=== PATIENT | female | born 1940 | race Caucasian/White ===

== ENCOUNTER → 2018-10-02 | Outpatient (CLI) | payer MEDICARE ==
[~2018-10-02] MED LIST: [UNRECOGNIZED DRUG - REMARK] PO
== END | disposition home or self-care (01) ==
LOC: CFH 13:54
PROVIDERS: ATTEND Physician Assistant
DX: M48.54XA Collapsed vertebra, not elsewhere classified, thoracic region, initial encounter for fracture (principal); M47.895 Other spondylosis, thoracolumbar region; M47.897 Other spondylosis, lumbosacral region; M48.04 Spinal stenosis, thoracic region; M48.07 Spinal stenosis, lumbosacral region; M51.27 Other intervertebral disc displacement, lumbosacral region; M54.41 Lumbago with sciatica, right side
CPT/HCPCS: 72148

== ENCOUNTER 2019-01-24 12:28 | Inpatient (IN) | payer MEDICARE ==
[~2019-01-24] VITALS: Ht 167.6 cm; Wt 57.6 kg
[~2019-01-24 12:28] MED LIST changes: +FOLI-17 PO; +MULT-658 PO; +ONDA4TAB13 PO; +PANT40TA5 PO; +THIA100T67 PO; +TRAM50TA2 PO
[2019-01-24] MEDS ORDERED: ONDANSETRON 2MG/ML, 2ML IVPush ONE (13:30)
[2019-01-24] MEDS ORDERED: SODIUM CHLORIDE FLUSH 10ML SYR IVF ONE (13:30)
[2019-01-24] MEDS ORDERED: FAMOTIDINE 20 MG/2 ML IVPush ONE (13:30)
[2019-01-24 13:39] LABS: MEAN CORPUSCULAR HEMOGLOBIN 33.2 pg (27.0-34.8); MEAN CORPUSCULAR HGB CONC 33.3 g/dL (32.4-35.8); MEAN CORPUSCULAR VOLUME 99.7 fL (80-100); PLATELET COUNT 527 x10^3/uL (130-400); RED BLOOD COUNT 2.94 x10^6/uL (3.82-5.3); RED CELL DISTRIBUTION WIDTH 14.5 % (9.6-15.2)
--- NOTE | 2019-01-24 13:45 | NUR ---
BC X 2 DRAWN BY NATY.
[2019-01-24 13:49] LABS: ALANINE AMINOTRANSFERASE 20 U/L (12-78); ALBUMIN 3.3 g/dL (3.4-5.0); ANION GAP 6 mmol/L (5-15); CALCIUM 8.6 mg/dL (8.5-10.1); CHLORIDE 102 mmol/L (98-107); CREATININE 0.69 mg/dL (0.55-1.02)
[2019-01-24 13:51] LABS: ALKALINE PHOSPHATASE 139 U/L (45-117); MD YES; TOTAL PROTEIN 7.2 g/dL (6.4-8.2)
[2019-01-24] MEDS ORDERED: ONDANSETRON 2MG/ML, 2ML ONE (13:51)
[2019-01-24] MEDS ORDERED: PIPERACILLIN/TAZO/PMX 3.375GM 50 ML ONE (13:51)
[2019-01-24] MEDS ORDERED: FAMOTIDINE 20 MG/2 ML ONE (13:52)
[2019-01-24 13:58] LABS: BANDS%(MANUAL) 1 % (0-7); LYMPHS% (MANUAL) 2 % (22-44); MONOS% (MANUAL) 4 % (2-9); SEG#(MANUAL) 37.29 x10^3/uL (1.8-6.8); SEGS% (MANUAL) 93 % (42-75)
[2019-01-24 14:00] LABS: POLYCHROMASIA 1+
[2019-01-24] MEDS ORDERED: PIPERACILLIN/TAZO/PMX 3.375GM 50 ML IV ONE (14:00)
[2019-01-24 14:02] LABS: <PLATELET ESTIMATE> INCREASED; LARGE PLATELETS 1+
[2019-01-24 14:03] LABS: TOXIC GRAN 1+
--- NOTE | 2019-01-24 14:14 | NUR ---
ED MD AT BEDSIDE TO DISCUSS POC. PT VERBALIZED UNDERSTANDING FOR PLAN TO ADMIT. SEPSIS DISCUSSED, PER ED MD, FLUID BOLUS NOT INDICATED AT THIS TIME.
--- NOTE | 2019-01-24 14:15 | NUR ---
REPORT TO GURMEET SILVA
[2019-01-24 14:22] LABS: MICROSCOPIC NOT IND
[2019-01-24 14:23] LABS: CULTURE INDICATED? NO
[2019-01-24] MEDS ORDERED: SODIUM CHLORIDE 0.9% 1,000ML IVBOLUS ONE (14:30)
--- NOTE | 2019-01-24 14:30 | NUR ---
ASSUMED PT CARE PT RESTING WAITING ADMIT ZENON HATFIELD PROVIDED IV INFUSING WELL
[2019-01-24 15:38] LABS: RAPID INFLUENZA A Negative (Negative); RAPID INFLUENZA B Negative (Negative)
[2019-01-24] MEDS ORDERED: VANCOMYCIN PER PHARMACY MC PRN (17:30)
[2019-01-24 17:46] LABS: HCT (SEDRATE) 29.6 % (34.6-47.8)
[2019-01-24] MEDS ORDERED: VANCOMYCIN 1,000 MG in SODIUM CHLORIDE 0.9% 100 ML IV SCH (18:00)
[2019-01-24] MEDS ORDERED: PHARMACOKINETIC MONITORING MC PRN (18:00)
[2019-01-24 18:03] LABS: TROPONIN I < 0.015 ng/mL (0.000-0.045)
[2019-01-24] MEDS: HEPARIN 5,000 UNITS/ML, 1ML SQ SCH (18:26)
[2019-01-24] MEDS: SODIUM CHLORIDE 0.9% 2,000 ML IV SCH (18:27)
[2019-01-24] MEDS: CEFEPIME 2 GM in DEXTROSE 5% 100 ML IV SCH (18:27)
[2019-01-24] MEDS: LEVOFLOXACIN/PMX 750MG/150ML 150 ML IV SCH (19:17)
[2019-01-24 19:25] LABS: CLOSTRIDIUM DIFFICILE ANTIGEN POSITIVE; CLOSTRIDIUM DIFFICILE TOXIN POSITIVE (Negative)
[2019-01-24 20:40] VITALS: BP 111/56
[2019-01-24] MEDS ORDERED: VANCOMYCIN PMX 1GM/200ML 200 ML IV SCH (21:00)
[2019-01-24] MEDS ORDERED: OMNIPAQUE 350 MG/ML, 100ML BOTTLE ONE (22:52)
[2019-01-24] MEDS: VANCOMYCIN 50 MG/ML ORAL SUSP PO SCH (23:06)
[2019-01-24 23:44] LABS: TROPONIN I < 0.015 ng/mL (0.000-0.045)
[2019-01-25 02:00] VITALS: BP 106/62
[2019-01-25] MEDS: CEFEPIME 2 GM in DEXTROSE 5% 100 ML IV SCH ×3 (03:17→23:02)
[2019-01-25] MEDS: HEPARIN 5,000 UNITS/ML, 1ML SQ SCH ×3 (03:18→20:37)
[2019-01-25] MEDS ORDERED: SODIUM CHLORIDE INHALATION 7%, 4 ML NPPB ONE (03:30)
[2019-01-25] MEDS: VANCOMYCIN 50 MG/ML ORAL SUSP PO SCH ×2 (05:47→11:51)
[2019-01-25] MEDS: SODIUM CHLORIDE 0.9% 2,000 ML IV SCH ×2 (06:34→23:03)
[2019-01-25] MEDS: PANTOPROZOLE 40MG TABLET PO SCH (06:34)
[2019-01-25 07:56] VITALS: BP 92/52
[2019-01-25 08:06] LABS: ALBUMIN 2.8 g/dL (3.4-5.0); ANION GAP 6 mmol/L (5-15); CALCIUM 7.5 mg/dL (8.5-10.1); CHLORIDE 103 mmol/L (98-107)
[2019-01-25 08:09] LABS: ALANINE AMINOTRANSFERASE 18 U/L (12-78); ALKALINE PHOSPHATASE 107 U/L (45-117); BILIRUBIN,TOTAL 0.7 mg/dL (0.2-1.0); CREATININE 0.73 mg/dL (0.55-1.02); TOTAL PROTEIN 5.9 g/dL (6.4-8.2)
[2019-01-25 08:26] LABS: HEMOGRAM NOTE RECHECKED; MEAN CORPUSCULAR HEMOGLOBIN 33.2 pg (27.0-34.8); MEAN CORPUSCULAR HGB CONC 33.3 g/dL (32.4-35.8); MEAN CORPUSCULAR VOLUME 99.6 fL (80-100); MEAN PLATELET VOLUME 8.8 fL (7.4-10.4); PLATELET COUNT 398 x10^3/uL (130-400); RED BLOOD COUNT 2.54 x10^6/uL (3.82-5.3); RED CELL DISTRIBUTION WIDTH 14.6 % (9.6-15.2)
[2019-01-25] MEDS: MULTIVITAMIN 1 TABLET PO SCH (08:28)
[2019-01-25] MEDS: SENNA/DOCUSATE TABLET PO SCH (08:28)
[2019-01-25] MEDS: FOLIC ACID 1 MG TABLET PO SCH (08:28)
[2019-01-25 09:16] LABS: BASOPHILS # (AUTO) 0.02 x10^3/uL (0-0.1); BASOPHILS % (AUTO) 0 % (0-1); EOSINOPHILS # (AUTO) 0.01 x10^3/uL (0-0.4); EOSINOPHILS % (AUTO) 0 % (1-7); LYMPHOCYTES % (AUTO) 7 % (22-44); MD SCAN; MONOCYTES # (AUTO) 1.85 x10^3/uL (0.2-0.8); MONOCYTES % (AUTO) 9 % (2-9); NEUTROPHILS # (AUTO) 16.44 x10^3/uL (1.8-6.8); NEUTROPHILS % (AUTO) 84 % (42-75)
[2019-01-25 13:38] VITALS: BP 106/51
[2019-01-25] MEDS: LEVOFLOXACIN/PMX 750MG/150ML 150 ML IV SCH (19:33)
[2019-01-25 20:00] VITALS: BP 116/64
[2019-01-26 02:00] VITALS: BP 144/73
[2019-01-26] MEDS: PANTOPROZOLE 40MG TABLET PO SCH (05:17)
[2019-01-26] MEDS: HEPARIN 5,000 UNITS/ML, 1ML SQ SCH ×3 (05:18→20:08)
[2019-01-26 07:18] LABS: MEAN CORPUSCULAR HEMOGLOBIN 32.8 pg (27.0-34.8); MEAN CORPUSCULAR HGB CONC 33.2 g/dL (32.4-35.8); MEAN CORPUSCULAR VOLUME 98.8 fL (80-100); MEAN PLATELET VOLUME 8.9 fL (7.4-10.4); PLATELET COUNT 376 x10^3/uL (130-400); RED BLOOD COUNT 2.48 x10^6/uL (3.82-5.3); RED CELL DISTRIBUTION WIDTH 14.3 % (9.6-15.2)
[2019-01-26 07:28] LABS: ALANINE AMINOTRANSFERASE 15 U/L (12-78); ALBUMIN 2.4 g/dL (3.4-5.0); ANION GAP 7 mmol/L (5-15); CALCIUM 7.7 mg/dL (8.5-10.1); CHLORIDE 108 mmol/L (98-107); CREATININE 0.56 mg/dL (0.55-1.02)
[2019-01-26 07:30] LABS: ALKALINE PHOSPHATASE 107 U/L (45-117); BILIRUBIN,TOTAL 0.5 mg/dL (0.2-1.0); TOTAL PROTEIN 5.7 g/dL (6.4-8.2)
[2019-01-26] MEDS: CEFEPIME 2 GM in DEXTROSE 5% 100 ML IV SCH ×2 (08:15→15:23)
[2019-01-26] MEDS: SENNA/DOCUSATE TABLET PO SCH (08:16)
[2019-01-26] MEDS: MULTIVITAMIN 1 TABLET PO SCH (08:16)
[2019-01-26] MEDS: FOLIC ACID 1 MG TABLET PO SCH (08:16)
[2019-01-26 08:17] VITALS: BP 142/61
[2019-01-26 08:23] LABS: BASOPHILS # (AUTO) 0.05 x10^3/uL (0-0.1); BASOPHILS % (AUTO) 1 % (0-1); EOSINOPHILS # (AUTO) 0.35 x10^3/uL (0-0.4); EOSINOPHILS % (AUTO) 4 % (1-7); LYMPHOCYTES # (AUTO) 1.43 x10^3/uL (1-3.4); LYMPHOCYTES % (AUTO) 15 % (22-44); MD SCAN; MONOCYTES # (AUTO) 1.51 x10^3/uL (0.2-0.8); MONOCYTES % (AUTO) 16 % (2-9); NEUTROPHILS # (AUTO) 6.39 x10^3/uL (1.8-6.8); NEUTROPHILS % (AUTO) 66 % (42-75)
[2019-01-26 14:03] VITALS: BP 126/88
[2019-01-26] MEDS: SODIUM CHLORIDE 0.9% 1,000 ML IV SCH (15:23)
[2019-01-26] MEDS ORDERED: POTASSIUM CHLORIDE 20 MEQ TAB.ER.PRT PO ONE (19:30)
[2019-01-26 20:00] VITALS: BP 142/63
[2019-01-26] MEDS: LEVOFLOXACIN/PMX 750MG/150ML 150 ML IV SCH (20:07)
[2019-01-27] MEDS: SODIUM CHLORIDE 0.9% 1,000 ML IV SCH ×3 (01:36→19:47)
[2019-01-27 02:00] VITALS: BP 162/77
[2019-01-27] MEDS: HEPARIN 5,000 UNITS/ML, 1ML SQ SCH ×3 (03:55→19:46)
[2019-01-27] MEDS: PANTOPROZOLE 40MG TABLET PO SCH (05:10)
[2019-01-27 08:14] LABS: BASOPHILS # (AUTO) 0.06 x10^3/uL (0-0.1); BASOPHILS % (AUTO) 1 % (0-1); EOSINOPHILS # (AUTO) 0.14 x10^3/uL (0-0.4); EOSINOPHILS % (AUTO) 2 % (1-7); LYMPHOCYTES # (AUTO) 1.55 x10^3/uL (1-3.4); LYMPHOCYTES % (AUTO) 19 % (22-44); MD NO; MEAN CORPUSCULAR HEMOGLOBIN 32.4 pg (27.0-34.8); MEAN CORPUSCULAR HGB CONC 32.8 g/dL (32.4-35.8); MEAN CORPUSCULAR VOLUME 98.8 fL (80-100); MEAN PLATELET VOLUME 9.2 fL (7.4-10.4); MONOCYTES # (AUTO) 1.04 x10^3/uL (0.2-0.8); MONOCYTES % (AUTO) 13 % (2-9); NEUTROPHILS # (AUTO) 5.31 x10^3/uL (1.8-6.8); NEUTROPHILS % (AUTO) 66 % (42-75); PLATELET COUNT 383 x10^3/uL (130-400); RED BLOOD COUNT 2.66 x10^6/uL (3.82-5.3); RED CELL DISTRIBUTION WIDTH 14.7 % (9.6-15.2)
[2019-01-27 08:29] LABS: ALANINE AMINOTRANSFERASE 16 U/L (12-78); ALBUMIN 2.7 g/dL (3.4-5.0); ANION GAP 7 mmol/L (5-15); CALCIUM 8.2 mg/dL (8.5-10.1); CHLORIDE 109 mmol/L (98-107); CREATININE 0.57 mg/dL (0.55-1.02)
[2019-01-27 08:31] LABS: ALKALINE PHOSPHATASE 118 U/L (45-117); BILIRUBIN,TOTAL 0.6 mg/dL (0.2-1.0); TOTAL PROTEIN 6.2 g/dL (6.4-8.2)
[2019-01-27 08:40] VITALS: BP 152/79
[2019-01-27] MEDS: FOLIC ACID 1 MG TABLET PO SCH (09:00)
[2019-01-27] MEDS: SENNA/DOCUSATE TABLET PO SCH (09:00)
[2019-01-27] MEDS: MULTIVITAMIN 1 TABLET PO SCH (09:34)
[2019-01-27] MEDS ORDERED: POTASSIUM CHLORIDE 20 MEQ TAB.ER.PRT PO ONE (13:30)
[2019-01-27] MEDS: LIDODERM 5% PATCH TD SCH (13:59)
[2019-01-27 14:12] VITALS: BP 147/73
[2019-01-27] MEDS: DOXYCYCLINE 100MG TABLET PO SCH (19:46)
[2019-01-27 20:00] VITALS: BP 153/69
[2019-01-27] MEDS: ONDANSETRON ODT 4 MG PO PRN (20:59)
[2019-01-28 02:00] VITALS: BP 134/70
[2019-01-28] MEDS: HEPARIN 5,000 UNITS/ML, 1ML SQ SCH ×3 (04:10→19:48)
[2019-01-28] MEDS: SODIUM CHLORIDE 0.9% 1,000 ML IV SCH ×3 (04:14→13:07)
[2019-01-28] MEDS: PANTOPROZOLE 40MG TABLET PO SCH (05:19)
[2019-01-28 07:05] VITALS: BP 132/68
[2019-01-28] MEDS: SENNA/DOCUSATE TABLET PO SCH (08:14)
[2019-01-28] MEDS: DOXYCYCLINE 100MG TABLET PO SCH ×2 (08:14→19:48)
[2019-01-28] MEDS: MULTIVITAMIN 1 TABLET PO SCH (08:14)
[2019-01-28] MEDS: VANCOMYCIN 50 MG/ML ORAL SUSP PO SCH ×3 (08:14→19:47)
[2019-01-28] MEDS: FOLIC ACID 1 MG TABLET PO SCH (08:14)
[2019-01-28] MEDS: LIDODERM 5% PATCH TD SCH (13:24)
[2019-01-28 13:46] VITALS: BP 129/73
[2019-01-28 19:52] VITALS: BP 148/92
[2019-01-28 20:44] VITALS: BP 156/76
[2019-01-28] MEDS: ONDANSETRON ODT 4 MG PO PRN (20:44)
[2019-01-29] MEDS: VANCOMYCIN 50 MG/ML ORAL SUSP PO SCH ×4 (01:04→19:48)
[2019-01-29 03:07] VITALS: BP 155/74
[2019-01-29] MEDS: HEPARIN 5,000 UNITS/ML, 1ML SQ SCH ×3 (05:12→20:03)
[2019-01-29] MEDS: PANTOPROZOLE 40MG TABLET PO SCH (05:13)
[2019-01-29] MEDS: SODIUM CHLORIDE 0.9% 1,000 ML IV SCH ×3 (05:13→21:51)
[2019-01-29 07:25] VITALS: BP 168/82
[2019-01-29] MEDS: MULTIVITAMIN 1 TABLET PO SCH (08:35)
[2019-01-29] MEDS: DOXYCYCLINE 100MG TABLET PO SCH ×2 (08:36→20:03)
[2019-01-29] MEDS: FOLIC ACID 1 MG TABLET PO SCH (08:36)
[2019-01-29] MEDS: SENNA/DOCUSATE TABLET PO SCH (08:36)
[2019-01-29 10:12] LABS: BASOPHILS # (AUTO) 0.06 x10^3/uL (0-0.1); BASOPHILS % (AUTO) 1 % (0-1); EOSINOPHILS # (AUTO) 0.12 x10^3/uL (0-0.4); EOSINOPHILS % (AUTO) 1 % (1-7); LYMPHOCYTES # (AUTO) 2.18 x10^3/uL (1-3.4); LYMPHOCYTES % (AUTO) 26 % (22-44); MD NO; MEAN CORPUSCULAR HEMOGLOBIN 31.9 pg (27.0-34.8); MEAN CORPUSCULAR HGB CONC 32.7 g/dL (32.4-35.8); MEAN CORPUSCULAR VOLUME 97.7 fL (80-100); MEAN PLATELET VOLUME 9.5 fL (7.4-10.4); MONOCYTES # (AUTO) 0.99 x10^3/uL (0.2-0.8); MONOCYTES % (AUTO) 12 % (2-9); NEUTROPHILS # (AUTO) 5.01 x10^3/uL (1.8-6.8); NEUTROPHILS % (AUTO) 60 % (42-75); PLATELET COUNT 388 x10^3/uL (130-400); RED BLOOD COUNT 2.74 x10^6/uL (3.82-5.3); RED CELL DISTRIBUTION WIDTH 15.1 % (9.6-15.2)
[2019-01-29 10:15] LABS: ALBUMIN 2.9 g/dL (3.4-5.0); ANION GAP 7 mmol/L (5-15); CALCIUM 8.3 mg/dL (8.5-10.1); CHLORIDE 108 mmol/L (98-107); CREATININE 0.54 mg/dL (0.55-1.02)
[2019-01-29] MEDS: LIDODERM 5% PATCH TD SCH (14:37)
[2019-01-29 14:40] VITALS: BP 153/80
[2019-01-29 18:49] VITALS: BP 143/71
[2019-01-29] MEDS: ONDANSETRON ODT 4 MG PO PRN (20:44)
[2019-01-30] MEDS: ONDANSETRON ODT 4 MG PO PRN (01:30)
[2019-01-30] MEDS: VANCOMYCIN 50 MG/ML ORAL SUSP PO SCH ×2 (01:32→08:10)
[2019-01-30 01:33] VITALS: BP 146/75
[2019-01-30] MEDS: PANTOPROZOLE 40MG TABLET PO SCH (05:18)
[2019-01-30] MEDS: HEPARIN 5,000 UNITS/ML, 1ML SQ SCH (05:18)
[2019-01-30] MEDS: SODIUM CHLORIDE 0.9% 1,000 ML IV SCH (05:40)
[2019-01-30 06:55] VITALS: BP 164/83
[2019-01-30] MEDS: MULTIVITAMIN 1 TABLET PO SCH (08:10)
[2019-01-30] MEDS: DOXYCYCLINE 100MG TABLET PO SCH (08:11)
[2019-01-30] MEDS: SENNA/DOCUSATE TABLET PO SCH (08:11)
[2019-01-30] MEDS: FOLIC ACID 1 MG TABLET PO SCH (08:11)
[2019-01-30] MEDS ORDERED: LIDO700A20 TD (09:07)
[2019-01-30] MEDS ORDERED: VANC1VIA3 PO (09:07)
[2019-01-30] MEDS ORDERED: SENN-177 PO (09:07)
[2019-01-30] MEDS ORDERED: DOXY100T PO (09:07)
[2019-01-30 09:42] LABS: BASOPHILS # (AUTO) 0.05 x10^3/uL (0-0.1); BASOPHILS % (AUTO) 1 % (0-1); EOSINOPHILS # (AUTO) 0.12 x10^3/uL (0-0.4); EOSINOPHILS % (AUTO) 1 % (1-7); LYMPHOCYTES # (AUTO) 1.66 x10^3/uL (1-3.4); LYMPHOCYTES % (AUTO) 20 % (22-44); MD NO; MEAN CORPUSCULAR HEMOGLOBIN 31.7 pg (27.0-34.8); MEAN CORPUSCULAR HGB CONC 32.5 g/dL (32.4-35.8); MEAN CORPUSCULAR VOLUME 97.6 fL (80-100); MEAN PLATELET VOLUME 9.1 fL (7.4-10.4); MONOCYTES # (AUTO) 0.98 x10^3/uL (0.2-0.8); MONOCYTES % (AUTO) 12 % (2-9); NEUTROPHILS % (AUTO) 67 % (42-75); PLATELET COUNT 377 x10^3/uL (130-400); RED BLOOD COUNT 2.68 x10^6/uL (3.82-5.3); RED CELL DISTRIBUTION WIDTH 15.3 % (9.6-15.2)
[2019-01-30 09:50] LABS: ANION GAP 5 mmol/L (5-15); CALCIUM 8.3 mg/dL (8.5-10.1); CHLORIDE 109 mmol/L (98-107); CREATININE 0.54 mg/dL (0.55-1.02)
[2019-01-30] MEDS: LIDODERM 5% PATCH TD SCH (09:50)
== END 2019-01-30 11:30 | DRG 871 ==
LOC: ED 14:33 → EDIP 15:02 → 4NOR 15:52 → 4WST 20:03
PROVIDERS: ADMIT Internal Medicine; ATTEND Internal Medicine
DX: A41.9 Sepsis, unspecified organism (principal); J18.0 Bronchopneumonia, unspecified organism; A04.72 Enterocolitis due to Clostridium difficile, not specified as recurrent; J91.8 Pleural effusion in other conditions classified elsewhere; M48.061 Spinal stenosis, lumbar region without neurogenic claudication; D72.823 Leukemoid reaction; D64.9 Anemia, unspecified; I45.81 Long QT syndrome; M48.04 Spinal stenosis, thoracic region; F17.200 Nicotine dependence, unspecified, uncomplicated
CPT/HCPCS: 36415; 71045; 74178; 80053; 80069; 81003; 83605; 83735; 84100; 84145; 84443; 84484; 85025; 85651; 87040; 87070; 87081; 87205; 87324; 87400; 93005; 96365; 96375; G0378; J1644; J1956; J2405; J2543; J3370; Q0162; Q9967; J3490; J7030

== ENCOUNTER 2020-07-13 10:25 | Emergency (ER) | payer MEDICARE ==
[~2020-07-13] VITALS: Ht 167.6 cm; Wt 47.9 kg
[~2020-07-13 10:25] MED LIST changes: +DOXY100T PO; +LIDO700A20 TD; -PANT40TA5 PO; +PANT40TA6 PO; +SENN-177 PO; +VANC1VIA3 PO
--- NOTE | 2020-07-13 10:38 | NUR ---
medication tech note: EKG taken in triage.
[2020-07-13] MEDS ORDERED: HYDROcodone/APAP 5/325 TABLET ONE (10:57)
[2020-07-13] MEDS ORDERED: HYDROcodone/APAP 5/325 TABLET PO ONE (11:00)
--- NOTE | 2020-07-13 11:09 | NUR ---
PT CAME IN CO OF PAIN FROM A GLF SHE TOOK 2 DAYS AGO. PT STATES SHE WAS SITTING DOWN AND "I GOT UP TOO FAST AND I FELT DIZZY AND FELL INTO THE DOOR". PT DENIES LOC OR TAKING BLOOD THINNERS. PT HAS EXTENSIVE BRUISING ON LEFT SIDE OF CHEST AND LEFT ARM. PT HAS FULL MOTION OF LEFT ARM BUT IT IS PAINFUL. PT IS RESTING IN GURNEY. BLANKET PROVIDED. MEDICATED PER JAN. EKG COMPLETE. CONNECTED TO MONITORING EQUIPMENT
[2020-07-13 11:34] LABS: ALBUMIN 3.7 g/dL (3.4-5.0); ANION GAP 10 mmol/L (5-15); CALCIUM 9.2 mg/dL (8.5-10.1); CHLORIDE 101 mmol/L (98-107)
[2020-07-13 11:36] LABS: INTERNATIONAL NORMALIZED RATIO 0.96 (0.93-1.1); PROTHROMBIN TIME 9.9 Seconds (9.6-11.5)
[2020-07-13 11:39] LABS: CREATINE KINASE, TOTAL 95 U/L (26-192); CREATININE 0.77 mg/dL (0.55-1.02); TROPONIN I < 0.015 ng/mL (0.000-0.045)
[2020-07-13 11:41] LABS: BASOPHILS # (AUTO) 0.01 x10^3/uL (0-0.1); BASOPHILS % (AUTO) 0 % (0-1); EOSINOPHILS # (AUTO) 0.02 x10^3/uL (0-0.4); EOSINOPHILS % (AUTO) 0 % (1-7); LYMPHOCYTES # (AUTO) 1.29 x10^3/uL (1-3.4); LYMPHOCYTES % (AUTO) 15 % (22-44); MD SCAN; MEAN CORPUSCULAR HEMOGLOBIN 34.3 pg (27.0-34.8); MEAN CORPUSCULAR HGB CONC 32.9 g/dL (32.4-35.8); MEAN CORPUSCULAR VOLUME 104.1 fL (80-100); MEAN PLATELET VOLUME 9.8 fL (7.4-10.4); MONOCYTES % (AUTO) 14 % (2-9); NEUTROPHILS # (AUTO) 6.06 x10^3/uL (1.8-6.8); NEUTROPHILS % (AUTO) 71 % (42-75); PLATELET COUNT 198 x10^3/uL (130-400); RED BLOOD COUNT 3.57 x10^6/uL (3.82-5.3); RED CELL DISTRIBUTION WIDTH 13.8 % (9.6-15.2)
[2020-07-13 12:15] VITALS: BP 117/49
--- NOTE | 2020-07-13 12:16 | NUR ---
PT RESTING IN [facility]. UP FOR RECHECK
--- NOTE | 2020-07-13 12:58 | NUR ---
REPORT FROM NADIR LEVI.
== END 2020-07-13 13:11 | disposition home or self-care (01) ==
LOC: ED 12:02
DX: S42.032A Displaced fracture of lateral end of left clavicle, initial encounter for closed fracture (principal); S00.83XA Contusion of other part of head, initial encounter; S20.212A Contusion of left front wall of thorax, initial encounter; S40.022A Contusion of left upper arm, initial encounter; R51 Headache; I49.3 Ventricular premature depolarization; I44.7 Left bundle-branch block, unspecified; R42 Dizziness and giddiness; W01.0XXA Fall on same level from slipping, tripping and stumbling without subsequent striking against object, initial encounter; Y93.89 Activity, other specified; Y92.098 Other place in other non-institutional residence as the place of occurrence of the external cause; Y99.8 Other external cause status
CPT/HCPCS: 36415; 70450; 71045; 80048; 82040; 82550; 84484; 85025; 85610; 93005; 99285

== ENCOUNTER 2021-03-01 06:53 | Inpatient (IN) | payer MEDICARE ==
[~2021-03-01] VITALS: Ht 167.6 cm; Wt 50.2 kg
[~2021-03-01 06:53] MED LIST changes: +ACET325T26 PO; +CYCL5TAB PO; -FOLI-17 PO; +FOLI1TAB32 PO; +IBUP200T64 PO; +SERT50TA28 PO
[2021-03-01] MEDS ORDERED: MORPHINE SULFATE 4 MG/ML, 1ML ONE (07:24)
[2021-03-01] MEDS ORDERED: SODIUM CHLORIDE 0.9% 1,000ML IVBOLUS ONE (07:30)
[2021-03-01] MEDS ORDERED: SODIUM CHLORIDE FLUSH 10ML SYR IVF ONE (07:30)
[2021-03-01] MEDS ORDERED: MORPHINE SULFATE 4 MG/ML, 1ML IVPush PRN (07:30)
[2021-03-01 07:36] LABS: BASOPHILS % (AUTO) 0 % (0-1); EOSINOPHILS % (AUTO) 0 % (1-7); LYMPHOCYTES % (AUTO) 5 % (22-44); MEAN CORPUSCULAR HEMOGLOBIN 34.2 pg (27.0-34.8); MEAN CORPUSCULAR HGB CONC 33.5 g/dL (32.4-35.8); MEAN PLATELET VOLUME 9.8 fL (7.4-10.4); MONOCYTES % (AUTO) 7 % (2-9); NEUTROPHILS % (AUTO) 87 % (42-75); PLATELET COUNT 265 x10^3/uL (130-400); RED BLOOD COUNT 3.58 x10^6/uL (3.82-5.3); RED CELL DISTRIBUTION WIDTH 14.8 % (9.6-15.2)
[2021-03-01 07:50] LABS: ALBUMIN 3.5 g/dL (3.4-5.0); CALCIUM 8.7 mg/dL (8.5-10.1); CHLORIDE 104 mmol/L (98-107)
[2021-03-01 07:55] LABS: ALANINE AMINOTRANSFERASE 16 U/L (12-78); ALKALINE PHOSPHATASE 80 U/L (45-117); ANION GAP 9 mmol/L (5-15); BILIRUBIN,TOTAL 0.7 mg/dL (0.2-1.0); CREATININE 0.65 mg/dL (0.55-1.02); TOTAL PROTEIN 7.4 g/dL (6.4-8.2)
[2021-03-01 07:58] LABS: MD SCAN
--- NOTE | 2021-03-01 08:00 | NUR ---
ULTRASOUND AT BEDSIDE
--- NOTE | 2021-03-01 08:48 | NUR ---
SBAR RPT REC'D FROM [facility] AND ASSUMED PT CARE. US AT BEDSIDE,
--- NOTE | 2021-03-01 08:54 | NUR ---
US COMPLETED, PT VSS, RATES PAIN 5/10 NAD NOTED. SON AT BEDSIDE. POC DISCUSSED AND QUESTIONS ANSWERED.
--- NOTE | 2021-03-01 10:07 | NUR ---
BREAK RN- PT RESTING IN BED, CALL LIGHT IN REACH
--- NOTE | 2021-03-01 10:56 | NUR ---
PIV FLUSHES W/O DIFFICULTY. PT TO CT WITH TECH TRANSPORT
--- NOTE | 2021-03-01 11:18 | NUR ---
PT RTD FROM CT, VSS NOTED, NAD
[2021-03-01] MEDS ORDERED: OMNIPAQUE 350 MG/ML, 100ML BOTTLE ONE (11:19)
--- NOTE | 2021-03-01 12:04 | NUR ---
DR MARQUEZ AT BEDSIDE, TEST RESULTS REVIEWED AND QUESTIONS ANSWERED. PLAN FOR ADMISSION.
[2021-03-01] MEDS: LACTATED RINGERS 1,000 ML IV SCH ×2 (12:30→18:58)
[2021-03-01] MEDS ORDERED: ACETAMINOPHEN 325 MG TABLET PO PRN (12:30)
[2021-03-01] MEDS ORDERED: ONDANSETRON 2MG/ML, 2ML IVPush PRN (12:30)
[2021-03-01] MEDS ORDERED: LORazepam 2 MG/ML, 1ML IV PRN ×4 (12:30)
[2021-03-01 13:43] VITALS: BP 156/78
[2021-03-01] MEDS ORDERED: ALBUTEROL HFA 90 MCG/SPRAY INH PRN (16:00)
[2021-03-01] MEDS: CHLORDIAZEPOXIDE 5 MG CAPSULE PO SCH ×2 (16:00→21:07)
[2021-03-01] MEDS: morphine SULFATE 10 MG/ML, 1ML IVPush PRN ×2 (17:03→20:03)
[2021-03-01 19:51] VITALS: BP 145/73
[2021-03-01] MEDS: PANTOPRAZOLE 40MG TABLET PO SCH (20:03)
[2021-03-02 00:13] VITALS: BP 152/88
[2021-03-02] MEDS: LACTATED RINGERS 1,000 ML IV SCH ×4 (02:39→22:41)
[2021-03-02] MEDS: morphine SULFATE 10 MG/ML, 1ML IVPush PRN ×4 (04:16→22:40)
[2021-03-02 05:58] LABS: BASOPHILS % (AUTO) 0 % (0-1); EOSINOPHILS % (AUTO) 0 % (1-7); LYMPHOCYTES % (AUTO) 8 % (22-44); MEAN CORPUSCULAR HEMOGLOBIN 34.6 pg (27.0-34.8); MEAN CORPUSCULAR HGB CONC 33.9 g/dL (32.4-35.8); MEAN PLATELET VOLUME 10.2 fL (7.4-10.4); MONOCYTES % (AUTO) 18 % (2-9); NEUTROPHILS % (AUTO) 73 % (42-75); PLATELET COUNT 204 x10^3/uL (130-400); RED BLOOD COUNT 3.31 x10^6/uL (3.82-5.3); RED CELL DISTRIBUTION WIDTH 14.7 % (9.6-15.2)
[2021-03-02] MEDS: CHLORDIAZEPOXIDE 5 MG CAPSULE PO SCH ×4 (06:15→20:35)
[2021-03-02 06:24] LABS: CHLORIDE 103 mmol/L (98-107)
[2021-03-02 06:28] LABS: ALANINE AMINOTRANSFERASE 12 U/L (12-78); ALBUMIN 2.7 g/dL (3.4-5.0); ALKALINE PHOSPHATASE 73 U/L (45-117); ANION GAP 5 mmol/L (5-15); BILIRUBIN,TOTAL 0.8 mg/dL (0.2-1.0); CALCIUM 8.2 mg/dL (8.5-10.1); CREATININE 0.48 mg/dL (0.55-1.02); TOTAL PROTEIN 6.2 g/dL (6.4-8.2)
[2021-03-02 07:18] LABS: MD SCAN
[2021-03-02 07:59] VITALS: BP 156/87
[2021-03-02] MEDS: SERTRALINE 50MG TABLET PO SCH (09:00)
[2021-03-02] MEDS: PANTOPRAZOLE 40MG TABLET PO SCH ×2 (09:00→20:35)
[2021-03-02] MEDS: MULTIVITAMIN 1 TABLET PO SCH (09:00)
[2021-03-02 19:25] VITALS: BP 156/83
[2021-03-03 00:41] VITALS: BP 145/81
[2021-03-03] MEDS: LACTATED RINGERS 1,000 ML IV SCH ×4 (04:40→23:57)
[2021-03-03] MEDS: CHLORDIAZEPOXIDE 5 MG CAPSULE PO SCH ×2 (06:14→20:26)
[2021-03-03 07:38] VITALS: BP 152/73
[2021-03-03] MEDS: MULTIVITAMIN 1 TABLET PO SCH (07:47)
[2021-03-03] MEDS: SERTRALINE 50MG TABLET PO SCH (07:47)
[2021-03-03] MEDS: PANTOPRAZOLE 40MG TABLET PO SCH ×2 (07:47→20:25)
[2021-03-03] MEDS: morphine SULFATE 10 MG/ML, 1ML IVPush PRN (11:45)
[2021-03-03 13:28] VITALS: BP 161/95
[2021-03-03] MEDS ORDERED: AMLODIPINE 10 MG TAB PO ONE (14:30)
[2021-03-03] MEDS: KETOROLAC 30 MG/1 ML IVPush SCH ×2 (15:15→20:26)
[2021-03-03 20:20] VITALS: BP 125/63
[2021-03-04 00:54] VITALS: BP 123/73
[2021-03-04] MEDS: KETOROLAC 30 MG/1 ML IVPush SCH ×2 (02:48→08:07)
[2021-03-04 06:32] LABS: BASOPHILS % (AUTO) 0 % (0-1); EOSINOPHILS % (AUTO) 0 % (1-7); LYMPHOCYTES % (AUTO) 6 % (22-44); MEAN CORPUSCULAR HEMOGLOBIN 34.5 pg (27.0-34.8); MEAN CORPUSCULAR HGB CONC 33.7 g/dL (32.4-35.8); MEAN PLATELET VOLUME 10.4 fL (7.4-10.4); MONOCYTES % (AUTO) 19 % (2-9); NEUTROPHILS % (AUTO) 74 % (42-75); PLATELET COUNT 185 x10^3/uL (130-400); RED BLOOD COUNT 3.25 x10^6/uL (3.82-5.3); RED CELL DISTRIBUTION WIDTH 14.5 % (9.6-15.2)
[2021-03-04 06:39] VITALS: BP 136/73
[2021-03-04 06:41] LABS: ALBUMIN 2.6 g/dL (3.4-5.0); ANION GAP 8 mmol/L (5-15); CALCIUM 8.2 mg/dL (8.5-10.1); CHLORIDE 97 mmol/L (98-107)
[2021-03-04 06:44] LABS: ALANINE AMINOTRANSFERASE 9 U/L (12-78); ALKALINE PHOSPHATASE 71 U/L (45-117); BILIRUBIN,TOTAL 0.6 mg/dL (0.2-1.0); CREATININE 0.39 mg/dL (0.55-1.02); TOTAL PROTEIN 6.3 g/dL (6.4-8.2)
[2021-03-04 07:03] LABS: MD SCAN
[2021-03-04] MEDS: LACTATED RINGERS 1,000 ML IV SCH (08:05)
[2021-03-04] MEDS: AMLODIPINE 10 MG TAB PO SCH (08:06)
[2021-03-04] MEDS: MULTIVITAMIN 1 TABLET PO SCH (08:06)
[2021-03-04] MEDS: SERTRALINE 50MG TABLET PO SCH (08:06)
[2021-03-04] MEDS: CHLORDIAZEPOXIDE 5 MG CAPSULE PO SCH (08:06)
[2021-03-04] MEDS: PANTOPRAZOLE 40MG TABLET PO SCH ×2 (08:06→19:52)
[2021-03-04] MEDS ORDERED: POTASSIUM CHLORIDE 20 MEQ TAB.ER.PRT PO ONE (11:30)
[2021-03-04] MEDS ORDERED: POTASSIUM CHLORIDE 40 MEQ in SODIUM CHLORIDE 0.9% 500 ML IV ONE (11:30)
[2021-03-04 13:19] VITALS: BP 120/62
[2021-03-04] MEDS: OXYcodone/APAP 5/325MG TABLET PO PRN ×2 (15:01→21:15)
[2021-03-04] MEDS ORDERED: MAGNESIUM SULFATE PMX 2GM/50ML 50 ML IV ONE (16:30)
[2021-03-04 18:22] VITALS: BP 117/72
[2021-03-05 00:43] VITALS: BP 94/52
[2021-03-05] MEDS: OXYcodone/APAP 5/325MG TABLET PO PRN ×2 (04:21→12:40)
[2021-03-05 05:18] LABS: ANION GAP 5 mmol/L (5-15); CALCIUM 7.9 mg/dL (8.5-10.1); CHLORIDE 98 mmol/L (98-107); CREATININE 0.35 mg/dL (0.55-1.02)
[2021-03-05] MEDS ORDERED: POTASSIUM CHLORIDE 40 MEQ in SODIUM CHLORIDE 0.9% 500 ML IV ONE (07:00)
[2021-03-05] MEDS ORDERED: POTASSIUM CHLORIDE 20 MEQ TAB.ER.PRT PO ONE (07:00)
[2021-03-05] MEDS ORDERED: MAGNESIUM SULFATE 1 GM in SODIUM CHLORIDE 0.9% 50 ML IV ONE (07:00)
[2021-03-05] MEDS ORDERED: MAGNESIUM SULFATE/D5W 100 ML IVPB ONE (07:30)
[2021-03-05 08:30] VITALS: BP 109/66
[2021-03-05] MEDS ORDERED: OXYC1TAB14 PO (09:03)
[2021-03-05] MEDS ORDERED: AMLO-211 PO (09:03)
[2021-03-05] MEDS: MULTIVITAMIN 1 TABLET PO SCH (09:20)
[2021-03-05] MEDS: PANTOPRAZOLE 40MG TABLET PO SCH (09:21)
[2021-03-05] MEDS: SERTRALINE 50MG TABLET PO SCH (09:21)
[2021-03-05] MEDS: AMLODIPINE 10 MG TAB PO SCH (09:21)
[2021-03-05 13:22] VITALS: BP 99/60
== END 2021-03-05 15:25 | disposition home health service (06) | DRG 438 ==
LOC: ED 07:39 → 3N 12:09 → SUATTDRO 12:13 → 3N 03-02 10:17
PROVIDERS: ADMIT Internal Medicine; ATTEND Family Medicine
DX: K85.90 Acute pancreatitis without necrosis or infection, unspecified (principal); E43 Unspecified severe protein-calorie malnutrition; J96.20 Acute and chronic respiratory failure, unspecified whether with hypoxia or hypercapnia; F10.20 Alcohol dependence, uncomplicated; D53.9 Nutritional anemia, unspecified; D75.89 Other specified diseases of blood and blood-forming organs; F17.210 Nicotine dependence, cigarettes, uncomplicated; D72.829 Elevated white blood cell count, unspecified; J44.9 Chronic obstructive pulmonary disease, unspecified; K83.8 Other specified diseases of biliary tract; K85.20 Alcohol induced acute pancreatitis without necrosis or infection; Z79.899 Other long term (current) drug therapy; Z79.891 Long term (current) use of opiate analgesic; Z79.01 Long term (current) use of anticoagulants; Z98.42 Cataract extraction status, left eye; Z98.41 Cataract extraction status, right eye; Z84.89 Family history of other specified conditions; Z87.01 Personal history of pneumonia (recurrent); Z87.81 Personal history of (healed) traumatic fracture
CPT/HCPCS: 36415; 71045; 74177; 76700; 80048; 80053; 83690; 83735; 84100; 85025; 93005; 96361; 96374; G0378; J1885; J3480; Q9967; J2270; J3475; J7030; J7040; J7120